=== PATIENT | male | born 1960 | race Caucasian/White ===

== ENCOUNTER 2017-04-04 08:54 | Inpatient (IN) | payer OTHER ==
--- NOTE | 2017-04-04 09:13 | EDPHY ---
H & P Stated Complaint: l hip replacement 3 months ago/increased pain/bruising /may be r/t humira Source: Patient Exam Limitations: No limitations - Personal History Current Tetanus/Diphtheria Vaccine: Unsure - Medical/Surgical History Hx Asthma: No Hx Chronic Respiratory Disease: No Hx Diabetes: No Hx Cardiac Disease: No Hx Renal Disease: No Hx Cirrhosis: No Hx Alcoholism: No Hx HIV/AIDS: No Hx Splenectomy or Spleen Trauma: No Other PMH: l hip replacement/psoriasis - Social History Smoking Status: Never smoked Time Seen by Provider: 04/04/17 09:11 HPI/ROS: HPI: This is a 57-year-old male presents with Chief Complaint: left hip replacement 3 months ago/increased pain/bruising /may be r/t humira Location:left hip Quality: Redness Duration: 4 days Signs and Symptoms: No bleeding, no radiation, no numbness, no weakness, no tingling, no incontinence, + decreased range of motion, + swelling, + pain Timing: Gradually worsening Severity: Moderate to severe Context: Patient has a history of psoriasis is on Humira last infusion Sunday status post left hip replacement by Dr. Sosa at [facility] 3 months ago presents with left hip redness, swelling, pain, warmth starting Sunday approximately 2 days after his Humira. Pain has been constant and gradually worsening to the point now that he is unable to bear weight on his left lower extremity. A similar occurrence approximately 2 months ago after his to Fabiana injection but symptoms only lasted for 5 days and self resolved. At that time he had x-ray imaging, dermatology skin scrapings, and lab work that were unremarkable per patient and . [facility] did not believe that the Humira injection was the etiology of the induration in the left hip. He has been having fevers as high as 101.2 oral F at home but the stop Sunday. and patient are concerned as the symptoms have persisted longer than the last episode. Modifying Factors: Tylenol, ibuprofen Comment: ROS: see HPI Constitutional: + fever, no chills, no weight loss Eyes: No blurred vision Respiratory: No shortness of breath, no cough Cardiovascular: No chest pain Gastrointestinal: No nausea, no vomiting no diarrhea Genitourinary: No dysuria Extremities: No myalgias Neurologic: No weakness, no numbness Skin: No rashes Hematologic: No bruising, no bleeding MEDICAL/SURGICAL/SOCIAL HISTORY: Medical history: Psoriasis Surgical history: Left hip replacement Social history: . CONSTITUTIONAL: Overweight adult white male, nontoxic in appearance, awake and alert, no obvious distress HEENT: Atraumatic and normocephalic, PERRL, EOMI. Tympanic membranes clear. Oropharynx clear, no exudate and moist pink mucosa. Airway patent. No lymphadenopathy. No meningismus. Cardiovascular: Normal S1/S2, regular rate, regular rhythm, without murmur rub or gallop. PULMONARY/CHEST: Symmetrical and nontender. Clear to auscultation bilaterally. Good air movement. No accessory muscle usage. ABDOMEN: Soft, nondistended, nontender, no rebound, no guarding, no peritoneal signs, no masses or organomegaly. No CVAT. EXTREMITIES: 2/2 pulses, LEFT HIP: Flexion to 100, extension to 90, hyperextension to 15, abduction to 25. Pain with internal rotation and external rotation. tenderness over greater trochanter. Well-healed posterior incision that is well approximated consistent with hip replacement. Erythema, warmth, induration noted over entire left hip extending into his gluteus leif. strength 5/5, no deformities, no clubbing, no cyanosis or edema. NEUROLOGICAL: no focal neuro deficits. GCS 15. SKIN: Warm and dry, no erythema. no rash. Good capillary refill. (Haleigh Rhodes) Constitutional: Initial Vital Signs Temperature (C) 36.4 C 04/04/17 09:00 Heart Rate 98 04/04/17 09:00 Respiratory Rate 20 04/04/17 09:00 Blood Pressure 134/88 H 04/04/17 09:00 O2 Sat (%) 95 04/04/17 09:00 O2 Delivery Mode Room Air Allergies/Adverse Reactions: adalimumab [From Humira] Allergy (Verified 04/04/17 08:59) Home Medications: Medication Instructions Recorded Oxycodone HCl 04/04/17 traMADol 04/04/17 Medical Decision Making - Diagnostics Imaging Results: Imaging Impressions Extremity CT 04/04/17 09:19 Impression: Left posterior 6 x 2.3 x 4.5 cm fluid collection, which extends to the posterior lateral femoral neck region, suspicious for abscess or less likely postsurgical hematoma. Left total hip arthroplasty appears in anatomical position. Consider CT-guided aspiration. Findings and recommendations discussed with Emergency Department physician, Haleigh Rhodes PA-C at 1130 hours on April 04, 2017. Final report concurs with initial preliminary interpretation. ED Course/Re-evaluation: The patient was evaluated and managed by the physician's pediatric dental assistant. My cosignature indicates that I reviewed the chart and I agree with the findings and plan of care as documented. I am the secondary supervising physician. ( Griselda Ford) Blood cultures, lactic acid, labs, IV fluids, IV medications, CT lower extremity ordered Given 2 L normal saline, 1 mg of Dilaudid Patient is afebrile and without systemic signs upon arrival. lactic acid 2.1; GIven IV Vancomycin Called by radiologist who advised her to posterior fluid collection in the per proximal femur that tracks into the femoral neck that is measuring 6 x 2.3 x 4.5 cm Spoke with patient and who wants me to contact [facility] in [place] and speak with Dr. Milton Jacobson to discuss case in situation and get recommendations versus admitting here to orthopedics and receiving care. 1230: Spoke with KIMBERLYN Jacobson's PA regarding the patient's labs, CT findings and care received thus far. She will speech her attending and call back regarding disposition. 1245: Called back from attending at [facility] who advised that patient could be managed here at this facility if he is willing. They will be available at any time for consultation and if hardware needs to be replaced patient can be transferred to them for revision and hardware removal. 1250: Spoke with Dr. Adam Cox who is agreeable to perform ultrasound guided aspiration of fluid collection ED decision to consult for admission, spoke with hospitalist and VISITOR SERVICE ASSISTANT Maegan who placed patient on [address] [place] under the care of Dr. Casanova. Spoke with Dr. Hitesh Keenan, orthopedics, who is happy to consult on patient. Of Note: Unfortunately due to delays in speaking with [place], patient received IV abx prior to US guided aspiration This patient was seen under the supervision of my secondary supervising physician. I evaluated care for this patient independently. Patient's presentation, labs/imaging, treatment and plan of care were discussed with secondary supervising physician. (Haleigh Rhodes) Differential Diagnosis: Differential diagnosis includes but is not limited to hardware infection, septic arthritis, cellulitis, hardware malfunction, allergic reaction, medication side effect. (Haleigh Rhodes) - Data Points Laboratory Results: Laboratory Results 04/04/17 09:20 04/04/17 09:20 04/04/17 04/04/17 04/04/17 09:31 09:20 09:20 WBC RBC Hgb Hct MCV MCH MCHC RDW Plt Count MPV Neut % (Auto) Lymph % (Auto) [place] % (Auto) Eos % (Auto) Baso % (Auto) Nucleat RBC Rel Count Absolute Neuts (auto) Absolute Lymphs (auto) Absolute Monos (auto) Absolute Eos (auto) Absolute Basos (auto) Absolute Nucleated RBC Immature Gran % Immature Gran # ESR VBG Lactic Acid 2.1 mmol/L mmol/L (0.7-2.1) Sodium 139 mEq/L mEq/L (134-144) Potassium 3.9 mEq/L mEq/L (3.5-5.2) Chloride 102 mEq/L mEq/L (97-110) Carbon Dioxide 22 mEq/l mEq/l (22-31) Anion Gap 15 mEq/L mEq/L (8-16) BUN 16 mg/dL mg/dL (7-23) Creatinine 0.8 mg/dL mg/dL (0.7-1.3) Estimated GFR > 60 Glucose 117 mg/dL H mg/dL (70-100) Calcium 9.5 mg/dL mg/dL (8.5-10.4) C-Reactive Protein Pending 04/04/17 09:20 WBC 9.07 10^3/uL 10^3/uL (3.80-9.50) RBC 4.82 10^6/uL 10^6/uL (4.40-6.38) Hgb 15.1 g/dL g/dL (13.7-17.5) Hct 44.1 % % (40.0-51.0) MCV 91.5 fL fL (81.5-99.8) MCH 31.3 pg pg (27.9-34.1) MCHC 34.2 g/dL g/dL (32.4-36.7) RDW 12.7 % % (11.5-15.2) Plt Count 249 10^3/uL 10^3/uL (150-400) MPV 9.8 fL fL (8.7-11.7) Neut % (Auto) 70.0 % % (39.3-74.2) Lymph % (Auto) 17.4 % % (15.0-45.0) [place] % (Auto) 9.5 % % (4.5-13.0) Eos % (Auto) 1.7 % % (0.6-7.6) Baso % (Auto) 0.6 % % (0.3-1.7) Nucleat RBC Rel Count 0.0 % % (0.0-0.2) Absolute Neuts (auto) 6.36 10^3/uL 10^3/uL (1.70-6.50) Absolute Lymphs (auto) 1.58 10^3/uL 10^3/uL (1.00-3.00) Absolute Monos (auto) 0.86 10^3/uL H 10^3/uL (0.30-0.80) Absolute Eos (auto) 0.15 10^3/uL 10^3/uL (0.03-0.40) Absolute Basos (auto) 0.05 10^3/uL 10^3/uL (0.02-0.10) Absolute Nucleated RBC 0.00 10^3/uL 10^3/uL (0-0.01) Immature Gran % 0.8 % % (0.0-1.1) Immature Gran # 0.07 10^3/uL 10^3/uL (0.00-0.10) ESR 52 MM/HR H MM/HR (0-20) VBG Lactic Acid Sodium Potassium Chloride Carbon Dioxide Anion Gap BUN Creatinine Estimated GFR Glucose Calcium C-Reactive Protein Medications Given: Discontinued Medications Hydromorphone HCl (Dilaudid) 1 mg IVP EDNOW ONE Stop: 04/04/17 09:21 Last Admin: 04/04/17 09:41 Dose: 1 mg Hydromorphone HCl (Dilaudid) 1 mg IVP EDNOW ONE Stop: 04/04/17 11:28 Last Admin: 04/04/17 11:33 Dose: 1 mg Sodium Chloride (Ns) 1,000 mls @ 0 mls/hr IV EDNOW ONE; Wide Open PRN Reason: Protocol Stop: 04/04/17 09:21 Last Admin: 04/04/17 09:42 Dose: 1,000 mls Sodium Chloride (Ns) 1,000 mls @ 0 mls/hr IV EDNOW ONE; Wide Open PRN Reason: Protocol Stop: 04/04/17 09:48 Last Admin: 04/04/17 11:32 Dose: 1,000 mls Vancomycin/Sodium Chloride (Vancomycin 1 Gm (Premix)) 250 mls @ 250 mls/hr IV EDNOW ONE PRN Reason: Protocol Stop: 04/04/17 12:37 Last Admin: 04/04/17 12:26 Dose: 250 mls Departure - Departure Disposition: [facility] Inpatient Acute Clinical Impression: Abscess of left hip History of hip replacement Qualifiers: Laterality: left Qualified Code(s): Z96.642 - Presence of left artificial hip joint
[2017-04-04] MEDS ORDERED: HYDROmorphONE/DILAUDID 1 MG/ML INJ IVP ONE ×3 (09:20→14:19)
[2017-04-04] MEDS ORDERED: NS 1,000 ML IV ONE ×2 (09:20→09:47)
[2017-04-04 09:34] LABS: % IMMATURE GRANULYOCYTES 0.8 % (0.0-1.1); ABSOLUTE IMMATURE GRANULOCYTES 0.07 10^3/uL (0.00-0.10); ADD DIFF? NO; ADD MORPH? NO; ADD SCAN? NO; ATYPICAL LYMPHOCYTE FLAG 20 (0-99); FRAGMENT RBC FLAG 0 (0-99); HEMATOCRIT 44.1 % (40.0-51.0); HEMOGLOBIN 15.1 g/dL (13.7-17.5); LEFT SHIFT FLG 0 (0-99); LIPEMIA HEMOLYSIS FLAG 90 (0-99); MEAN CELL HEMOGLOBIN 31.3 pg (27.9-34.1); MEAN CELL HEMOGLOBIN CONCENTR. 34.2 g/dL (32.4-36.7); MEAN CELL VOLUME 91.5 fL (81.5-99.8); MEAN PLATELET VOLUME 9.8 fL (8.7-11.7); PLATELET CLUMPS FLAG 0 (0-99); PLATELET COUNT 249 10^3/uL (150-400); RED BLOOD CELL COUNT 4.82 10^6/uL (4.40-6.38); RED CELL DISTRIBUTION WIDTH 12.7 % (11.5-15.2)
[2017-04-04] MEDS ORDERED: HYDROmorphONE/DILAUDID 1 MG/ML INJ ONE ×2 (09:45→14:13)
[2017-04-04 09:53] LABS: SEDIMENTATION RATE 52 MM/HR (0-20)
[2017-04-04 10:09] LABS: ANION GAP 15 mEq/L (8-16); CALCIUM 9.5 mg/dL (8.5-10.4); CARBON DIOXIDE 22 mEq/l (22-31); CHLORIDE 102 mEq/L (97-110); CREATININE 0.8 mg/dL (0.7-1.3); GLOMERULAR FILTRATION RATE > 60; GLUCOSE 117 mg/dL (70-100); POTASSIUM 3.9 mEq/L (3.5-5.2); SODIUM 139 mEq/L (134-144)
[2017-04-04] MEDS ORDERED: IOPAMIDOL (ISOVUE-300) 100 ML BTL ONE (10:11)
[2017-04-04] MEDS ORDERED: VANCOMYCIN HCL/NORMAL SALINE 250 ML IV ONE (11:38)
[2017-04-04] MEDS ORDERED: LIDOCAINE 1% 300 MG/30 ML SDV ONE (13:20)
[2017-04-04] MEDS ORDERED: ACETAMN/DIPHENHYDRAMINE 500/25MG TAB PO PRN (14:10)
[2017-04-04] MEDS ORDERED: ACETAMINOPHEN 325 MG TAB PO PRN (14:10)
[2017-04-04] MEDS ORDERED: HYDROmorphone HCL/NS/PF 0.4 MG/2 ML SYR IVP PRN (14:19)
[2017-04-04] MEDS ORDERED: ONDANSETRON DISINTEGRATING 4 MG TAB PO PRN (14:19)
[2017-04-04] MEDS ORDERED: ONDANSETRON 4 MG/2 ML VIAL IVP PRN (14:19)
[2017-04-04] MEDS ORDERED: NS 1,000 ML IV SCH (14:30)
[2017-04-04 15:57] LABS: WBC, SYNOVIAL FLUID 10322 /mm3 (0-150)
[2017-04-04] MEDS ORDERED: VANCOMYCIN 500 MG in D5W 100 ML IV ONE (16:30)
[2017-04-04] MEDS: ACETAMINOPHEN 325 MG TAB PO PRN (16:58)
[2017-04-04] MEDS: traMADol 50 MG TAB PO PRN (17:05)
--- NOTE | 2017-04-04 17:50 | PDGENHP ---
History and Physical History and Physical: CC: Left hip pain and fever HISTORY: This patient, who had a left total hip arthroplasty 3 months ago at [facility] , comes in now with fever and hip pain for the past 5 days. 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 His surgery was initially uncomplicated. He takes Humira for psoriasis. His 1st dose since surgery was 3 weeks ago and this was followed by approximately 5 days of skin discoloration and discomfort in the hip area although at all felt quite superficial. There was no pain with motion of the hip joint and no pain with standing or walking or other activities and there was no fever. He went back to his good recovery afterwards. He took his next dose of Humira last week and 5 days ago started having chills and sweats associated with fever, swelling and pain at the hip and redness of the skin. These symptoms have all worsened since that time so he is having quite a bit of difficulty walking. He presents to the hospital today with these symptoms. There has been no lightheadedness, shortness of breath, open skin wounds, nausea vomiting, diarrhea, abdominal pain, back pain. In the ER CT was done showing a fluid collection in the region of the hip prosthesis. He has since had 70 cc of fluid removed by ultrasound-guided needle aspiration and it was described as a yellowish fluid. 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 I have reviewed the list and ordered appropriate medicines. PHYSICAL EXAMINATION: Vital Signs: Temperature so far normal here Some tachycardia but blood pressures are good Examination: General: alert, oriented, good mentation, relaxed Skin: warm, dry, good color, no rash; good distal capillary refill HEENT: normal Neck: no mass or jvd Resps: relaxed Lungs: clear breath sounds Heart: regular, no murmur Abdomen: soft, nondistended, nontender, +BS, no mass Upper Extremities: normal Lower Extremities: At the left buttock and left posterior lateral hip area there is significant soft tissue swelling redness and tenderness without fluctuance (I am examining him after he had aspiration of 70 cc of fluid earlier today) No Bleeding or bruising Neurologic: normal speech/language, 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 Due to do his most likely infection I will ask Infectious Disease to see the patient. The ER has consulted consulted Dr. Younger from Orthopedics. I would presume that he will need a surgical washout or even or invasive procedures but a will await orthopedic consultation PLANS: -continue current vancomycin -will give some hydration and follow his vital signs closely, though he does not have evidence of sepsis at this time -infectious disease consultation -await orthopedics consultation as well -I have made him NPO at this time
[2017-04-04] MEDS: oxyCODONE IR 5 MG TAB PO PRN (20:32)
[2017-04-04] MEDS: ZOLPIDEM TARTRATE 5 MG TAB PO PRN (20:41)
[2017-04-05] MEDS ORDERED: VANCOMYCIN 1.5 GM in D5W 250 ML IV SCH (04:30)
[2017-04-05] MEDS: ACETAMINOPHEN 325 MG TAB PO PRN ×3 (04:39→17:28)
[2017-04-05] MEDS: oxyCODONE IR 5 MG TAB PO PRN ×3 (04:40→20:43)
[2017-04-05 05:24] LABS: % IMMATURE GRANULYOCYTES 0.8 % (0.0-1.1); ABSOLUTE IMMATURE GRANULOCYTES 0.06 10^3/uL (0.00-0.10); ADD DIFF? NO; ADD MORPH? NO; ADD SCAN? NO; ATYPICAL LYMPHOCYTE FLAG 10 (0-99); FRAGMENT RBC FLAG 0 (0-99); HEMATOCRIT 40.4 % (40.0-51.0); HEMOGLOBIN 13.6 g/dL (13.7-17.5); LEFT SHIFT FLG 0 (0-99); LIPEMIA HEMOLYSIS FLAG 80 (0-99); MEAN CELL HEMOGLOBIN 31.1 pg (27.9-34.1); MEAN CELL HEMOGLOBIN CONCENTR. 33.7 g/dL (32.4-36.7); MEAN CELL VOLUME 92.2 fL (81.5-99.8); MEAN PLATELET VOLUME 9.4 fL (8.7-11.7); PLATELET CLUMPS FLAG 0 (0-99); PLATELET COUNT 244 10^3/uL (150-400); RED BLOOD CELL COUNT 4.38 10^6/uL (4.40-6.38); RED CELL DISTRIBUTION WIDTH 12.6 % (11.5-15.2)
[2017-04-05 05:43] LABS: ANION GAP 14 mEq/L (8-16); CARBON DIOXIDE 23 mEq/l (22-31); CHLORIDE 102 mEq/L (97-110); CREATININE 0.8 mg/dL (0.7-1.3); GLOMERULAR FILTRATION RATE > 60; GLUCOSE 111 mg/dL (70-100); POTASSIUM 4.3 mEq/L (3.5-5.2); SODIUM 139 mEq/L (134-144)
--- NOTE | 2017-04-05 05:44 | GCON ---
[f rep st] CONSULTATION ORTHOPEDIC CONSULTATION DATE OF CONSULTATION: 04/04/2017 REASON FOR CONSULTATION: Left hip pain, swelling, redness, inability to weight bear status post tota l hip arthroplasty. HISTORY OF PRESENT ILLNESS: This is a 57-year-old male who had a left posterior approach total hip a rthroplasty by Dr. Cleveland at the [facility] in [place], [place] approximately 3 months ago. He h ad a relatively uneventful postoperative course without wound complications until 1 month ago. 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 His Hu terry injection 1 month ago, he developed erythema, redness, swelling, and fevers in the posterior asp ect of his hip and buttock. However, symptoms were more mild. He was evaluated by the [place] team, an d this was thought to be non infectious. He was evaluated also by Dermatology. However, this resolv ed on its own after approximately 5 days. He received a subsequent Humira injection on Sunday of last week, March 28. On Sunday, he developed redness, swelling, pain about the left hip as well a s fevers. He has not had fevers in several days but has extreme pain with any sort of attempts to we ightbearing and motion. He was administered one dose of vancomycin IV in the emergency department pr ior to aspiration of his left hip. Blood work was also drawn, as well as a CT scan was performed. REVIEW OF SYSTEMS: A comprehensive 10-system review revealed no other significant findings. PAST MEDICAL HISTORY: Includes psoriasis for which he has been on disease-modifying drugs for the 5 years. PAST SURGICAL HISTORY: Includes knee arthroscopy, cholecystectomy, and the recent left posterior abrahan vick total hip arthroplasty for avascular necrosis. ALLERGIES: None. MEDICATIONS: Include Humira as well as recent postoperative medications including pain relievers and Ambien. SOCIAL HISTORY: The patient denies smoking or drug use, does consume approximately 3 glasses of wine per evening. PHYSICAL EXAMINATION: GENERAL: The patient is awake, alert, and oriented x3. HEENT: NC/AT. LUNGS : Respirations easy and nonlabored. ABDOMEN: Soft, nondistended, nontender. LEFT LOWER EXTREMITY: The left buttock and posterolateral hip with significant swelling, erythema, and exquisite tenderne ss to even light touch. He has significant pain with even attempts at range of motion. Patient's hi p is positioned in a flexed and externally rotated position and appears to be comfortable in this pos ition if he is not moving. He has no calf pain or swelling. Sensation is intact to light touch from L3 to S1. He has intact EHL, FHL, TA, and GSC. Palpable DP, PT pulses. LABORATORY DATA: CBC and BMP are unremarkable. ESR is 52 and elevated. CRP is [address] and elevated. IMAGING: CT scan reveals a large posterior fluid collection extending to the posterolateral femoral neck of the prosthesis. Prosthesis itself does not appear to have loosening or fracture and remains in anatomic position. Aspiration results reveal 70 cc of yellow and cloudy fluid aspirated from the posterior aspect of the hip with 10,322 white blood cells, 99% neutrophils. In addition, the prelimi nary gram-stain reveals 2+ gram-positive cocci. ASSESSMENT AND PLAN: A 57-year-old male with a left periprosthetic total joint infection. Plan and information were discussed with the patient and his . I recommend revision surgery with head and liner exchanged and copious irrigation and debridement of the left hip based on history, physical ex am, laboratory data, CT scan, and aspiration results. There is a possibility that his infection has been subclinical for the last month and this has been present since his first Humira injection since his total hip. This would put him at an increased risk for failure with the 1-stage revision, in whi ch case, a 2-stage revision with complete explantation of the prosthesis with implantation of an anti biotic spacer and IV antibiotics through a PICC line for at least 6 weeks targeted at a specific orga nism, followed by reimplantation of the total hip prosthesis once the infection was documented to be completely cleared. The patient and his are debating regarding location of treatment, as his in itial procedure was performed in [place], [place] at the [facility]. Patient has refused surger y this evening. He and his will have a discussion whether or not to stay in [place] or fly back to the [facility] for surgery. He will be n.p.o. after midnight. He is currently still on IV vanc omycin. We will discuss treatment with him again tomorrow. /[id number]/MODL
[2017-04-05] MEDS ORDERED: ENOXAPARIN 40 MG/0.4 ML SYR SC SCH (09:00)
--- NOTE | 2017-04-05 09:14 | SOAPPROG ---
SOAP Progress Note Assessment/Plan: Assessment: The patient interviewed and examined today. Please see my dictated consultation for the details. Plan: 04/05/17 09:14 Objective: Vital Signs Temp Pulse Resp BP Pulse Ox 36.6 C 80 18 139/98 H 91 L 04/05/17 08:25 04/05/17 08:25 04/05/17 08:25 04/05/17 08:25 04/05/17 08:25 Microbiology 04/04/17 14:40 Gram Stain - Final Hip - Aspirate Laboratory Results 04/05/17 04:45 04/05/17 04:45 04/04/17 04/05/17 04/06/17 05:59 05:59 05:59 Intake Total 450 Output Total 1750 Balance -1300 ICD10 Worksheet Patient Problems: Problems Problem Status Onset Abscess of left hip Acute History of hip replacement Acute
--- NOTE | 2017-04-05 09:45 | GHP ---
[f rep st] PREOP HISTORY AND PHYSICAL DATE OF ADMISSION: 04/04/2017 PROBLEMS: 1. Possible left total hip arthroplasty deep sepsis The patient is a 57-year-old man who underwent a left total hip arthroplasty at the [facility] on January 01, 2017. His original diagnosis was avascular necrosis. There were no significant postoperative problems. Several weeks postop he had a small superficial infection at the very distal end of the incision. This was treated with oral antibiotics and resolved completely. He had a normal recovery after that. The patient has a history of psoriatic arthritis. He has been receiving Humira injections for about a year and a half. His first Humira injection after the surgery was in February. He developed a rash on the lateral side of his hip with some local pain in the posterolateral hip region. He was checked again at the [facility] and nothing significant was discovered. Within 5 days, his symptoms completely resolved without any treatment. The erythema resolved and the pain resolved. He started walking normally again. Last Sunday he had another Humira injection. By Sunday he developed a large area of erythema and developed a fever. On April 04 he came to the emergency room because of severe pain in the left hip and an inability to walk. His white count in the emergency room was 9070. Neutrophil percentage was 70% . His sed rate was 52, and his C-reactive protein was 156. Repeat CBC today showed a white count of 7240 with 67% neutrophils. He received a dose of IV vancomycin in the emergency room yesterday morning. He received a 2nd dose of IV vancomycin last night. Yesterday afternoon he had an ultrasound-guided aspiration of his left hip joint. The needle was introduced through the posterior aspect of the buttocks, and they aspirated 60 mL of a yellow fluid. His gram-stain from the fluid showed 4+ PMNs and 2+ gram- positive cocci. PHYSICAL EXAMINATION: Exam today shows he is fully alert and oriented. He is quite comfortable. He has a small area of erythema on the buttocks. He can flex the hip to about 80 degrees before he gets much pain. He has active hip flexion. He is primarily tender along the incision. He has not had plain films. IMPRESSION: 1. Status post left total hip arthroplasty. 2. History of psoriatic arthritis. 3. Probable sepsis of the left hip. The history of erythema and pain following his Humira injections is puzzling. I have talked to the patient and his extensively about the diagnosis and various treatments. They have some inclination for returning to the [facility] for treatment. His original surgery was done by Dr. Deandre Jacobson. His has been in close communication with the [facility] in the last couple of days regarding his treatment. One option is surgical washout and debridement of the wound with a liner head exchange. The patient would prefer to wait a day or two to see what develops. He also is inclined to stop the antibiotics and see if he continues to improve or if the symptoms recur. The hip fluid culture might be inconclusive because he received IV vancomycin prior to the aspiration. The presence of 2+ gram-positive cocci in the fluid is worrisome. I will contact the [facility] for additional information and discussed the case with Dr. Byrant Casanova. If he needs a surgical debridement and headliner exchange, we can do that here in [place] in the next day or two. /[id number]/MODL MTDD
--- NOTE | 2017-04-05 11:24 | PDMN ---
Medical Necessity Medical necessity: Pt meets INPT criteria per and [facility] Musculoskeletal Disease GRG (est. 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
--- NOTE | 2017-04-05 12:24 | ASMTCMCOM ---
CM Note CM Note Notes: Pt has L hip abscess (had total hip in December at [facility] in [place]). Ortho and ID consulting, PT/OT evals pending. Pt may need debridement and may consider having this done in [place]. CM to follow. Date Signed: 04/05/2017 12:24 PM Electronically Signed By:BILLY Roman
[2017-04-05] MEDS ORDERED: IOPAMIDOL (ISOVUE 370) 100 ML BTL IV ONE (14:14)
[2017-04-05] MEDS ORDERED: LIDOCAINE 1% 300 MG/30 ML SDV ONE (14:14)
--- NOTE | 2017-04-05 16:10 | HOSPPROG ---
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 I reviewed the case in detail today with doctors Keaton Townsend and Mable Manzo. The patient is feeling notably better after aspiration of 60 cc fluid and day of antibiotics. He is afebrile with no signs of sepsis. However there is clearly infection in the fluid as obtained. Today CT with arthrocentesis definitely seems to point to a prosthetic joint infection and so further discussion between Infectious Disease Orthopedics and the patient and family will occur to make recommendations but it sounds like probably a joint revision will be required As his infection is with a group a strep we should be able to treat him with Ancef. SUBJECTIVE: Feels much better today with less pain and better mobility after the removal of 60 cc of fluid from his hip last evening and antibiotics no chills or sweats today Eating well OBJECTIVE Vitals reviewed: Afebrile with stable vital signs Exam: alert oriented skin warm dry color ok resps not labored lungs clear BSs heart regular abd soft nondistended nontender, bowel sounds present limbs less swelling and tenderness at the left hip but still not nearly at baseline iv site ok Laboratory data: Synovial fluid from yesterday's CT-guided aspiration with 10,000 white cells and growing a group a strep CBC and chemistry stable CT scan done today with arthrogram does show communication between the synovial space at the prosthesis and the posterior fluid collection which was aspirated last evening, indicating prosthetic joint infection Objective: Vital Signs Temp Pulse Resp BP Pulse Ox 36.8 C 96 18 120/94 H 92 04/05/17 15:59 04/05/17 15:59 04/05/17 15:59 04/05/17 15:59 04/05/17 15:59 Microbiology 04/04/17 14:40 Gram Stain - Final Hip - Aspirate Laboratory Results 04/05/17 04:45 04/05/17 04:45 04/04/17 04/05/17 04/06/17 06:59 06:59 06:59 Intake Total 450 Output Total 1750 Balance -1300 - Time Spent With Patient Time Spent with Patient: greater than 35 minutes Time Spent with Patient: Greater than 35 minutes spent on this patients care, greater than 50% of time spent counseling, educating, and coordinating care regarding the above mentioned plan. ICD10 Worksheet Patient Problems: Problems Problem Status Onset Abscess of left hip Acute History of hip replacement Acute
[2017-04-05] MEDS: ceFAZolin 2 GM/DEXTROSE 100 ML IV SCH (17:28)
[2017-04-05] MEDS: ZOLPIDEM TARTRATE 5 MG TAB PO PRN (20:42)
--- NOTE | 2017-04-05 20:42 | GCON ---
[f rep st] CONSULTATION INFECTIOUS DISEASE CONSULTATION. DATE OF CONSULTATION: 04/05/2017 PHYSICIAN REQUESTING CONSULT: Bryant Casanova. REASON FOR CONSULTATION: Possible left septic hip arthroplasty. 57-year-old male with a history of psoriatic arthritis and psoriasis on chronic Humira, who underwent a left total hip arthroplasty at the [facility] on January 01, 2017. Initial diagnosis prior to the procedure was avascular necrosis. Patient had an uneventful postoperative period and was progressing well with rehab and was ambulating with a cane. His first problem occurred in February 2017 when he received his Humira injection. He developed some discoloration of his left hip and presented to [place] for evaluation where he underwent evaluation and it was felt that there was no specific diagnosis to have and patient's symptoms improved. Again, patient administered Humira on 03/28/2017, and subsequently patient developed increased swelling, redness on his left buttock and back and became increasingly painful to ambulate. Over the last couple days, he was unable to walk. Patient subsequently presented to the emergency room 04/04/2017, where he was found to have some tenderness and induration associated with that hip. Patient underwent an extremity CT which showed a 6 x 2.3 x 4.5 cm fluid collection which extends to the posterolateral femoral neck. Subsequently, patient underwent ultrasound-guided aspiration of this area, which 60 mL of yellow fluid was removed. Gram stain of this fluid showed GPCs and subsequently culture showed strep dysgalactiae group C/G. Patient received 1 dose of IV vancomycin in the ER prior to this aspiration and antibiotics have been held since that time. Today, patient underwent a left hip arthrogram with only 1 mL of clear fluid aspirated. Additional iodine was placed and contrast was placed intra-articular and subsequent CT scan was performed which demonstrated communication between the abscess cavity and the joint. In addition to severe pain and swelling of the left hip, patient had associated fevers. PAST MEDICAL HISTORY: Psoriatic arthritis on biologic for 5 years, on topical therapy prior to that. 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 FAMILY HISTORY: No family history of autoimmune or immune deficiencies. SOCIAL HISTORY: Patient works in [employer]. No tobacco. No street drugs. Patient is . MEDICATIONS: Vancomycin x1, Tylenol, Lovenox 40 subcu, hydromorphone as needed , Zofran, oxycodone, normal saline, Ultram and Ambien. ALLERGIES: Adalimumab. REVIEW OF SYSTEMS: A complete 10-point review of systems was performed and is negative except as mentioned in the HPI. PHYSICAL EXAM: VITAL SIGNS: Blood pressure 120/94, heart rate is 96, respiratory rate 18, saturation 92% on room air, T 36.8. GENERAL: This is a man who is generally comfortable. No acute distress. HEENT: Within normal limits. No conjunctival hemorrhages. Good dentition. Moist mucous membranes. NECK: Supple. No lymphadenopathy. CARDIOVASCULAR: Regular rate, no murmurs. CHEST: Clear to auscultation bilaterally. EXTREMITIES: His left hip was indurated and warm. No melinda cellulitis was noted, although exam was limited due to superimposed orange Hibiclens. Significant tenderness to palpation of the left hip. Dorsalis pedis pulses were good. Patient had significant limited range of motion of the hip due to pain. NEUROLOGICALLY: He was alert and oriented x4 without obvious focal neurologic deficits. SKIN: No rashes. LABORATORY: White count 7.2, hematocrit 40, platelets 244, 67% neutrophils, 20 % lymphocytes. ESR 52, CRP 152, creatinine 0.8. Fluid from abscess showed 10, 000 WBCs, 99% neutrophils, and 968 RBCs. Blood cultures from 04/04/2017 are no growth to date and hip/abscess aspirate showed strep dysgalactiae. ASSESSMENT AND PLAN: 57-year-old male with psoriasis on a TNF inhibitor, who presents with increased left hip pain and fever 3 months out from left total hip arthroplasty, now demonstrated to have left septic prosthetic hip arthritis with associated abscess with culture showing strep dysgalactiae. Abscess cavity found to be connected to joint (info defined later in the day from my initial visit) which reflects septic joint and would lean towards two-step procedure with removal and washout of joint, followed by 6 weeks of IV antibiotics and subsequently replacement following demonstration of sterility of the joint. Joint retention associated with decreased success of cure of septic prosthetic joint. Will resume IV antibiotics with cefazolin 2 g IV q.8. Will likely change to ceftriaxone 2gm IV daily for ease of administration as outpatient. Reviewed side effects of antibiotics with patient and as well as PICC line placement. Time 75 min >50% time spent with education and counseling regarding antibiotic side effects including risks of cdiff, risks of PICC line and likely need for additional surgical intervention. Questions were answered and will continue to follow on a daily basis. /[id number]/MODL MTDD
[2017-04-06] MEDS: ACETAMINOPHEN 325 MG TAB PO PRN ×2 (00:43→06:28)
[2017-04-06] MEDS: ceFAZolin 2 GM/DEXTROSE 100 ML IV SCH ×3 (00:45→18:17)
[2017-04-06] MEDS: traMADol 50 MG TAB PO PRN ×2 (09:51→19:41)
[2017-04-06] MEDS ORDERED: ceFAZolin 1 GM/5 ML SYR ONE ×2 (11:50→12:20)
[2017-04-06] MEDS ORDERED: MIDAZOLAM 2 MG/2 ML VIAL IVP ONE (12:45)
--- NOTE | 2017-04-06 12:46 | PDANEPAE ---
ANE History of Present Illness here for I and D hip ANE Past Medical History - Cardiovascular History Hx Hypertension: No Hx Arrhythmias: No Hx Chest Pain: No Hx Coronary Artery / Peripheral Vascular Disease: No Hx CHF / Valvular Disease: No Hx Palpitations: No - Pulmonary History Hx COPD: No Hx Asthma/Reactive Airway Disease: No Hx Recent Upper Respiratory Infection: No Hx Oxygen in Use at Home: No Hx Sleep Apnea: Yes Sleep Apnea Screening Result - Last Documented: Positive - Endocrine History Hx Diabetes: No Hypothyroid: No Hyperthyroid: No - Renal History Hx Renal Disorders: No - Liver History Hx Hepatic Disorders: No - Neurological & Psychiatric Hx Hx Neurological and Psychiatric Disorders: No - Chronic Pain History Chronic Pain: No ANE Review of Systems Review of systems is: negative Review of Systems: - Exercise capacity Exercise capacity: >=4 METS ANE Patient History - Allergies Allergies/Adverse Reactions: adalimumab [From Humira] Allergy (Verified 04/04/17 08:59) - Home Medications Home medications: home medication list seen and reviewed Home Medications: Acetaminophen [Tylenol 325mg (*)] 325 mg PO Q8HRS PRN 04/04/17 [Last Taken 04/03] Acetamn/Diphenhydramine 500/25 [Tylenol PM (*)] 1 each PO HS PRN 04/04/17 [Last Taken 04/03/17] Adalimumab [Humira] 40 mg SQ WE 04/04/17 [Last Taken 03/28/17] oxyCODONE IR [Oxycodone Ir (*)] 5 - 10 mg PO Q8HRS PRN 04/04/17 [Last Taken 1 tab] traMADol [Ultram 50 mg (*)] 50 - 100 mg PO Q6HRS PRN 04/04/17 [Last Taken ] - NPO status NPO Status: no food or drink >8 hours NPO Since - Liquids (Date): 04/06/17 NPO Since - Liquids (Time): 09:00 NPO Since - Solids (Date): 04/05/17 NPO Since - Solids (Time): 19:00 - Anes Hx Anes Hx: no prior problems - Smoking Hx Smoking Status: Never smoked ANE Labs/Vital Signs - Labs Result Diagrams: 04/05/17 04:45 04/05/17 04:45 - Vital Signs Blood Pressure: 140/96 Heart Rate: 90 Respiratory Rate: 18 O2 Sat (%): 91 Height: 185.42 cm Weight: 111.13 kg ANE Physical Exam - Airway Neck exam: FROM Mallampati Score: Class 1 - Pulmonary Pulmonary: no respiratory distress - Cardiovascular Cardiovascular: regular rate and rhythym - ASA Status ASA Status: II ANE Anesthesia Plan Anesthesia Plan: general endotracheal anesthesia
[2017-04-06] MEDS ORDERED: ROPIVACAINE 0.2% 80 MG, EPINEPHrine 0.2 MG, KETOROLAC TROMETHAMINE 30 MG in BAG 0 ML IU ONE (13:06)
[2017-04-06] MEDS ORDERED: fentaNYL 100 MCG/2 ML INJ ONE ×4 (13:09→16:40)
[2017-04-06] MEDS ORDERED: PROPOFOL/EMULSION 500 MG/50 ML BOTTLE IV ONE (13:21)
[2017-04-06] MEDS ORDERED: HYDROmorphONE/DILAUDID 2 MG/ML INJ ONE (13:59)
[2017-04-06] MEDS ORDERED: PROMETHAZINE HCL 25 MG/ML INJ IVP PRN (14:12)
[2017-04-06] MEDS ORDERED: NALOXONE HCL 0.4 MG/ML INJ IVP PRN (14:12)
[2017-04-06] MEDS ORDERED: ALBUTEROL 3 ML DEYVIAL IH PRN (14:12)
[2017-04-06] MEDS ORDERED: ONDANSETRON 4 MG/2 ML VIAL IVP PRN (14:12)
[2017-04-06] MEDS ORDERED: POVIDONE-IODINE 20 ML in SODIUM CL IRRIG SOLUTION 500 ML IRR ONE (14:30)
[2017-04-06] MEDS ORDERED: SUGAMMADEX SODIUM 200 MG/2 ML VIAL IVP ONE (14:56)
[2017-04-06] MEDS ORDERED: CYCLOBENZAPRINE 10 MG TAB PO PRN (15:17)
[2017-04-06] MEDS ORDERED: MAGNESIUM HYDROXIDE 30 ML UDCUP PO PRN (15:17)
[2017-04-06] MEDS ORDERED: LACTULOSE 20 GM/30 ML UDCUP PO PRN (15:17)
[2017-04-06] MEDS ORDERED: POLYETHYLENE GLYCOL 3350 17 GM PKT PO PRN (15:17)
[2017-04-06] MEDS ORDERED: BISACODYL 10 MG SUPP PR PRN (15:17)
[2017-04-06] MEDS ORDERED: DIPHENOXYLATE/ATROPINE LOMOTIL 1 TAB PO PRN (15:17)
--- NOTE | 2017-04-06 15:18 | POSTOPPROG ---
Post Op Note Date of Operation: 04/06/17 Surgeon: Davy Townsend [employer] Instrument Mechanic: Héctor Marrero/Lorne Piña Anesthesiologist: Dr. Jaime Mon Anesthesia: GET(General Endotracheal) Post-op Diagnosis: Infected left total hip arthroplasty Procedure: Left total hip debridement and irrigation with head/liner exchange. Inf/Abcess present in the surg proc area at time of surgery?: No EBL: 100-500 Drains: Baron Joseph
--- NOTE | 2017-04-06 15:28 | POSTANESTH ---
Post Anesthetic Evaluation Cardiovascular Status: Normal, Stable Respiratory Status: Normal, Stable Level of Consciousness/Mental Status: Mildly Sleepy, Arousable Pain Control: Adequate, Prn Tx Ordered Nausea/Vomiting Control: Adequate, Prn Tx Ordered Complications Possibly Related to Anesthesia: None Noted
[2017-04-06] MEDS: fentaNYL 100 MCG/2 ML INJ IVP PRN ×4 (15:43→17:02)
[2017-04-06] MEDS ORDERED: HYDROmorphONE/DILAUDID 1 MG/ML INJ ONE (16:01)
--- NOTE | 2017-04-06 16:02 | HOSPPROG ---
Hospitalist Progress Note Assessment/Plan: DIAGNOSES: -septic left hip prosthesis, status post imaging guided aspiration 60 cc infected synovial fluid, status post Left total hip debridement and irrigation with head/liner exchange. 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 I reviewed his case in detail with Dr. Banuelos. Remaining questions will be whether there will be plans or need for further surgery including potential revision, what would be the most appropriate suppressive antibiotic and duration , and whether it should be considered safe or not for him to continue using Humira therapy. Dr. Banuelos has asked the laboratory to test his strep isolate for penicillin resistance. Will discuss further with Dr. Banuelos and Dr. Townsend as the patient recovers. At this time he will require ongoing IV antibiotics, physical therapy occupational therapy, DVT prophylaxis, wound management, and discharge planning to assess his needs and mobility issues for discharge. SUBJECTIVE: Feels much better today with less pain and better mobility after the removal of 60 cc of fluid from his hip last evening and antibiotics no chills or sweats today Eating well OBJECTIVE Vitals reviewed: Afebrile with stable vital signs Exam: alert oriented skin warm dry color ok resps not labored lungs clear BSs heart regular abd soft nondistended nontender, bowel sounds present limbs less swelling and tenderness at the left hip but still not nearly at baseline iv site ok Laboratory data: Synovial fluid from CT-guided aspiration with 10,000 white cells and growing a group C/G strep CBC and chemistry stable Objective: Vital Signs Temp Pulse Resp BP Pulse Ox 37.2 C 90 18 140/96 H 91 L 04/06/17 13:08 04/06/17 13:08 04/06/17 13:08 04/06/17 13:08 04/06/17 13:08 Microbiology 04/04/17 14:40 Gram Stain - Final Hip - Aspirate 04/05/17 15:10 Gram Stain - Final Synovial Fluid - Aspirate Laboratory Results 04/05/17 04:45 04/05/17 04:45 04/05/17 04/06/17 04/07/17 06:59 06:59 06:59 Intake Total 450 600 Output Total 1750 300 Balance -1300 300 - Time Spent With Patient Time Spent with Patient: greater than 35 minutes Time Spent with Patient: Greater than 35 minutes spent on this patients care, greater than 50% of time spent counseling, educating, and coordinating care regarding the above mentioned plan. ICD10 Worksheet Patient Problems: Problems Problem Status Onset Abscess of left hip Acute History of hip replacement Acute
[2017-04-06] MEDS: HYDROmorphONE/DILAUDID 1 MG/ML INJ IVP PRN ×6 (16:04→17:09)
--- NOTE | 2017-04-06 16:49 | ASMTCMCOM ---
CM Note CM Note Notes: Pt went to surgery today for hip abscess, will require home IV antibiotics. Pt currently on cefazolin 2g q8. Referral sent to Evelyn Rojas attempted to meet pt but he was in surgery. Pt still needs picc. Pt may need C PT/OT. CM to follow Date Signed: 04/06/2017 04:48 PM Electronically Signed By:BILLY Roman
--- NOTE | 2017-04-06 17:51 | PCMIDPN ---
Assessment/Plan: Assessment/Plan: * Left total hip arthroplasty septic arthritis status post incision and drainage with liner exchange: Initial cultures with growth of group C/G Streptococcus. Repeat cultures are currently pending. Continue cefazolin pending additional cultures. Have asked laboratory to assess penicillin susceptibility of isolate. Likely will transition to ceftriaxone unless dictated otherwise by additional culture findings. 04/06/17 17:48 Subjective: Patient status post left hip incision and drainage with head/liner exchange. Objective: Vital Signs Temp Pulse Resp BP Pulse Ox 36.6 C 90 13 131/77 H 93 04/06/17 17:17 04/06/17 13:08 04/06/17 17:30 04/06/17 17:30 04/06/17 17:30 Microbiology 04/04/17 14:40 Gram Stain - Final Hip - Aspirate 04/05/17 15:10 Gram Stain - Final Synovial Fluid - Aspirate Laboratory Results 04/05/17 04:45 04/05/17 04:45 04/05/17 04/06/17 04/07/17 05:59 05:59 05:59 Intake Total 433 270 1771 Output Total 1750 300 440 Balance -2076 097 5732 ESR 52 MM/HR (0-20) H 04/04/17 09:20 C-Reactive Protein 156.2 mg/L (<10.0) H 04/04/17 09:31 Cefazolin # 1 Hip cultures with growth of group C/G Streptococcus Synovial cultures pending Blood cultures no growth - Physical Exam General Appearance: alert, no apparent distress EENT: pharynx normal, No scleral icterus, No conjunctival petechiae Respiratory: lungs clear, No respiratory distress Cardiac/Chest: regular rate, rhythm, No systolic murmur Extremities: other (Hip dressed postoperatively; serosanguineous output in CAITLIN bulb) Abdomen: non-tender, No distended ICD10 Worksheet Patient Problems: Problems Problem Status Onset Abscess of left hip Acute History of hip replacement Acute
[2017-04-06] MEDS: oxyCODONE IR 5 MG TAB PO PRN (18:28)
[2017-04-06] MEDS: FAMOTIDINE 20 MG TAB PO SCH (19:40)
[2017-04-06] MEDS: SENNOSIDES/DOCUSATE SODIUM TAB PO SCH (19:40)
[2017-04-06] MEDS: ZOLPIDEM TARTRATE 5 MG TAB PO PRN (19:41)
--- NOTE | 2017-04-06 22:57 | GOP ---
[f rep st] OPERATIVE REPORT DATE OF OPERATION: 04/06/2017 SURGEON: Davy Townsend MD LOGISTICS ENGINEER: Héctor Marrero and Lorne Piña. ANESTHESIA: General. ANESTHESIOLOGIST: Dr. Jaime Mon. PREOPERATIVE DIAGNOSIS: Septic left total hip arthroplasty. POSTOPERATIVE DIAGNOSIS: Septic left total hip arthroplasty. PROCEDURE PERFORMED: Left total hip arthroplasty debridement and irrigation, with head/liner exchang e. FINDINGS: DESCRIPTION OF PROCEDURE: The patient is already receiving intravenous Ancef on a regular basis. No additional preoperative antibiotics were given. Tranexamic acid was not used. He was placed on the operating room table in the supine position and given general anesthesia by Dr. Jaime Mon. A Fol ey catheter was not used. He wore a stocking and SCD on the nonoperative leg. He was rolled to the right lateral decubitus position. The position was secured with the pegboard table attachment. An a xillary roll was used, and all pressure points were carefully padded. I was careful to lock his pelv is in a vertical position. His perineum was isolated with plastic adhesive drapes. His left hip and left lower extremity were prepped with ChloraPrep. They were draped free using sterile sheets, stoc kinette, and Ioban plastic drapes. The [employer] time-out was performed to verify the correct surgical side and the [facility] patient identity. The [place] time-out was also performed. I reopened his original surgical incision on the posterior lateral surface of his hip. This was appr oximately 7-8 inches in length. The subcutaneous tissues were sharply divided, and hemostasis was ob tained using electrocautery. There were no abnormalities or evidence of infection in the subcutaneou s tissues. The fascia ted was identified and split along the axis of its fibers. I curved posterio rly and proximally, and split the fascia of the gluteus leif. I encountered an abnormal amount of serous to slightly turbid fluid posterior to the hip joint. On his preoperative CT scan 48 hours ago, there was some type of fluid collection within the gluteus leif muscle. I did some finger dissection through the fibers of the gluteus leif, but could no t find an additional abscess. I suspect that what was seen was the fluid that was sitting posterior to the femoral neck area and adjacent to the trochanter. A culture for aerobic and anaerobic organis ms was taken from the fluid in the subfascial space. There was no remaining posterior capsule or ext ernal rotators. There was a large open communication into the posterior aspect of the hip joint. Th ere was some mild yellowish huang fibrinoid material covering some of the soft tissues. This was remov ed with a rongeur. The hip was dislocated posteriorly. I used a bone tamp to tap off the ceramic head. I then dissecte d some soft tissues around the rim of the acetabular component to gain access. I took a biopsy of in flamed synovial tissue and sent that for aerobic and anaerobic culture. I used a 3.2 drill bit and diane blacnas inserted a 4.5 cancellous screw through the polyethylene and used that to disengage the polyethyl amanda liner from the acetabular shell. This was a multi-holed shell. There was some yellowish huang fib rinoid material in the screw holes that were unused. I used a curette to curette out this material. I did some additional debriding of soft tissues with sharp dissection and with a rongeur. Everythin g was thoroughly irrigated with a dilute Betadine solution. I reinserted a [employer] [place] polyethylene liner, which was a neutral liner with a 36 mm inside diamet er and a 58 mm outside diameter. I then did a trial reduction with a -2.5 and a -5 mm, 36 mm head co mponent. I had removed a [place] [employer] Delta ceramic head with an outside diameter of 36 mm and a n cassius length of -5. The hip was very stable with the trial reduction with a -5, 36 mm head. I reinser abhijit a 36 mm cobalt chrome head. I did not want to use another ceramic head, because it would have re quired a titanium sleeve, which would create another interface. The 36 mm [place] chrome head from eduarda with a -5 mm neck length was tapped securely onto the clean trunnion. The trunnion itself look ed healthy. The hip was thoroughly irrigated 1 final time with a dilute Betadine solution. It was reduced. It w as very stable in flexion and internal rotation up to 60 degrees. There was no posterior capsule for repair. I inserted a 5 mm PVC drain along the neck of the prosthe sis and brought it out anteriorly and distally. The fascia ted was closed first with some interrupt ed #1 PDS sutures, followed by a running #2 PDO suture. Subcutaneous tissues were infiltrated with the joint cocktail, 40 cc. Subcutaneous tissues were closed with a running 0 barbed Ethicon Stratafix Monoderm suture. The skin was closed with a running 3-0 barbed Ethicon Stratafix Monoderm subcuticular suture. The skin edges were reapproximated and sealed with Dermabond glue. The wound was covered with a strip of Telfa, an d everything was held in place with a piece of clear plastic Tegaderm. A long-leg ABHIJIT stocking and SCD were applied to his left lower extremity. He wore a stocking and SCD on the opposite leg during the procedure. An abduction pillow was placed between his knees. He was awakened from anesthesia and rolled to the supine position on his [facility] He was taken to PACU in satisfactory condition. There were no recognized intraoperative complications. The estimated blood loss was about 400 mL. Héctor Marrero and Lorne Piña acted as surgical assistants. Their assistance was a medical necess ity for safe completion of the procedure. Copy requested to: Dr. Deandre Jacobson [facility] /[id number]/MODL
[2017-04-07] MEDS: ceFAZolin 2 GM/DEXTROSE 100 ML IV SCH ×2 (00:12→08:16)
[2017-04-07] MEDS: ACETAMINOPHEN 325 MG TAB PO PRN ×3 (00:19→18:02)
[2017-04-07] MEDS: traMADol 50 MG TAB PO PRN ×4 (03:02→20:17)
[2017-04-07] MEDS: oxyCODONE IR 5 MG TAB PO PRN (03:04)
[2017-04-07 04:58] LABS: HEMATOCRIT 35.7 % (40.0-51.0); HEMOGLOBIN 11.9 g/dL (13.7-17.5)
[2017-04-07 05:20] LABS: ANION GAP 12 mEq/L (8-16); CALCIUM 8.9 mg/dL (8.5-10.4); CARBON DIOXIDE 25 mEq/l (22-31); CHLORIDE 102 mEq/L (97-110); CREATININE 0.8 mg/dL (0.7-1.3); GLOMERULAR FILTRATION RATE > 60; GLUCOSE 102 mg/dL (70-100); POTASSIUM 4.5 mEq/L (3.5-5.2); SODIUM 139 mEq/L (134-144)
[2017-04-07] MEDS: ENOXAPARIN 40 MG/0.4 ML SYR SC SCH (08:08)
[2017-04-07] MEDS: FAMOTIDINE 20 MG TAB PO SCH ×2 (08:09→20:16)
[2017-04-07] MEDS: SENNOSIDES/DOCUSATE SODIUM TAB PO SCH ×2 (08:09→20:15)
--- NOTE | 2017-04-07 10:32 | SOAPPROG ---
SOAP Progress Note Assessment/Plan: Assessment: Postop day 1 status post left total hip and incision and debridement prosthetic head and liner exchange. Plan: Weightbearing as tolerated with posterior hip precautions, PT/OT Lovenox for DVT prophylaxis Pain control with Tylenol Celebrex oxycodone Incentive spirometry 10 times per hour IV Ancef for positive culture growth of group C/G Streptococcus. Surgical cultures pending, Gram stain negative to date. Plan for PICC line insertion today. Discharge disposition pending. Likely home with home health and IV antibiotics 04/07/17 10:29 Subjective: No acute events. Pain well controlled. Much improved this morning. Has been up and walking with physical therapy. Denies fevers chills nausea vomiting chest pain shortness of breath numbness tingling. Objective: Vital Signs Temp Pulse Resp BP Pulse Ox 36.6 C 83 18 119/77 90 L 04/07/17 04:40 04/07/17 04:40 04/07/17 04:40 04/07/17 04:40 04/07/17 08:30 Microbiology 04/04/17 14:40 Gram Stain - Final Hip - Aspirate 04/06/17 14:07 Gram Stain - Final Hip - Eswab 04/06/17 14:13 Gram Stain - Final Hip - Tissue 04/06/17 14:20 Gram Stain - Final Hip - Eswab 04/05/17 15:10 Gram Stain - Final Synovial Fluid - Aspirate Laboratory Results 04/07/17 04:35 04/07/17 04:35 04/06/17 04/07/17 04/08/17 05:59 05:59 05:59 Intake Total 600 2450 Output Total 300 505 Balance 300 1945 Awake alert and oriented x3 No acute distress Left lower extremity mild serosanguineous drainage posteriorly on the surgical dressing. Compartment soft mild swelling and ecchymosis. Drain with mild serosanguineous output. Sensation intact L3-S1 Motor intact EHL FHL tib ant and gastrocsoleus Palpable DP PT pulses brisk cap refill - Time Spent With Patient Time Spent With Patient: 15 - Pending Discharge Pending Discharge Within 48 Hours: Yes Pending Discharge Date: 04/09/17 Pending Discharge Time: 11:00 ICD10 Worksheet Patient Problems: Problems Problem Status Onset Abscess of left hip Acute History of hip replacement Acute
[2017-04-07] MEDS ORDERED: ALTEPLASE 2 MG VIAL IVP PRN (10:39)
--- NOTE | 2017-04-07 10:44 | PDIAF ---
- Diagnosis Diagnosis: Left hip septic arthritis Code Status: Full Code - Medication Management Discharge Medications: Medications to Continue on Transfer Acetaminophen [Tylenol 325mg (*)] 325 mg PO Q8HRS PRN 04/04/17 [Last Taken 04/03] Acetamn/Diphenhydramine 500/25 [Tylenol PM (*)] 1 each PO HS PRN 04/04/17 [Last Taken 04/03/17] Adalimumab [Humira] 40 mg SQ WE 04/04/17 [Last Taken 03/28/17] oxyCODONE IR [Oxycodone Ir (*)] 5 - 10 mg PO Q8HRS PRN 04/04/17 [Last Taken 1 tab] traMADol [Ultram 50 mg (*)] 50 - 100 mg PO Q6HRS PRN 04/04/17 [Last Taken ] Longterm Antibiotics: Ceftriaxone 2 g IV Q 24 hr Longterm Antibiotic Stop Date: 05/18/17 Discharge Medications: Refer to the Discharge Home Medication list for PRN reason. PICC Care - Routine: Yes - Orders Services needed: Home Mcfp Care Face to Face: I certify that this patient was under my care and that I had the required [id number] encounter meeting the encounter requirements on the discharge day. My findings support the fact that the patient is homebound as defined in Home Care Face to Face Continued: CMS Chapter 7 Medicare Benefits Manual 30.1.1 , The condition of the patient is such that there exists a normal inability to leave home and consequently, leaving home would require a considerable and taxing effort. - Labs/Radiology CBC w/diff Date: 04/11/17 (Weekly Q Sunday) CMP Date: 04/11/17 (Weekly Q Sunday) CRP Date: 04/11/17 (Weekly Q Sunday) Call or Fax Lab and Imaging Results to: Dr. Manzo, - Follow Up Care Current Providers and Referrals: Vamshi Fairchild MD [Primary Care Provider] - As per Instructions
--- NOTE | 2017-04-07 10:47 | PCMIDPN ---
Assessment/Plan: Assessment/Plan: * Left total hip arthroplasty septic arthritis status post incision and drainage with liner exchange: Initial cultures with growth of group C/G Streptococcus. Operative cultures are currently pending. Will transition cefazolin to ceftriaxone for once daily dosing. Ceftriaxone typically with excellent activity against group C/G streptococcus. Plan 6 weeks of IV antibiotic therapy with weekly laboratory monitoring. Risk and benefits of antibiotics and PICC line were discussed with patient today. 04/07/17 10:44 Subjective: Patient complains of left hip pain. Was up ambulating earlier today. Objective: Vital Signs Temp Pulse Resp BP Pulse Ox 36.6 C 83 18 119/77 90 L 04/07/17 04:40 04/07/17 04:40 04/07/17 04:40 04/07/17 04:40 04/07/17 08:30 Microbiology 04/04/17 14:40 Gram Stain - Final Hip - Aspirate 04/06/17 14:07 Gram Stain - Final Hip - Eswab 04/06/17 14:13 Gram Stain - Final Hip - Tissue 04/06/17 14:20 Gram Stain - Final Hip - Eswab 04/05/17 15:10 Gram Stain - Final Synovial Fluid - Aspirate Laboratory Results 04/07/17 04:35 04/07/17 04:35 04/06/17 04/07/17 04/08/17 05:59 05:59 05:59 Intake Total 600 2450 Output Total 300 505 Balance 300 1945 ESR 52 MM/HR (0-20) H 04/04/17 09:20 C-Reactive Protein 156.2 mg/L (<10.0) H 04/04/17 09:31 Cefazolin # 2 Operative Gram stains negative with cultures pending Blood cultures x2 no growth - Physical Exam General Appearance: alert, no apparent distress EENT: pharynx normal, No conjunctival petechiae Respiratory: lungs clear, No respiratory distress Cardiac/Chest: regular rate, rhythm, No systolic murmur Extremities: inflammation (Left hip dressed postoperatively; CAITLIN drain with serosanguineous output) Abdomen: non-tender, No distended ICD10 Worksheet Patient Problems: Problems Problem Status Onset Abscess of left hip Acute History of hip replacement Acute
--- NOTE | 2017-04-07 12:14 | ASMTCMCOM ---
CM Note CM Note Notes: DC plan still to go home with IV ABX's. Spoke w/Dr Banuelos who said pt will need 6 wks IV ABX's. Met w/pt and ; they confirmed they would like to do this at home and are comfortable learning how to administer IV ABX. Pt will get PICC today. We discussed therapy. PT recommending out pt PT, but pt considering whether he would like to have PT initially at home; we discussed that it would be best to check with ortho MD tomorrow to see if they felt Home PT was necessary. At this time RN from [facility] will see pt at home but if pt decieds to have home PT will need to find other agency to send RN/PT. Discussed this with Evelyn from [facility]. Per Evelyn, pt is 100 % covered for this home infusion. Pt lives at home w/, RANDAL. They will initially be staying at friend's house so that they can live on one story. This address, [facility], [place] [address], was given to Evelyn at [facility]. CM will follow and will f/u to see if pt will need home PT or not. Date Signed: 04/07/2017 12:13 PM Electronically Signed By:Brenda Hooks RN
--- NOTE | 2017-04-07 12:45 | HOSPPROG ---
Hospitalist Progress Note Assessment/Plan: DIAGNOSES: -septic left hip prosthesis, status post imaging guided aspiration 60 cc infected synovial fluid, status post Left total hip debridement and irrigation with head/liner exchange. 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 I reviewed in detail with Dr. Banuelos. I agree with switching antibiotic to Rocephin so that he can do once daily antibiotics. We should be able to very soon arrange for home IV antibiotics if the Orthopedics team is comfortable with trying to get him home soon. He should work with the Infectious Disease team and with his button pusher to determine the future care for his psoriasis. There would be increased risk for ongoing infectious complications with further Humira therapy SUBJECTIVE: Some discomfort and hip but actually moving around fairly well, walking in hallway without additional pain. No chills or sweats No respiratory symptoms or chest symptoms OBJECTIVE Vitals reviewed: Afebrile with stable vital signs Exam: alert oriented skin warm dry color ok resps not labored lungs clear BSs heart regular abd soft nondistended nontender, bowel sounds present limbs still some swelling and tenderness at left hip but improved Drain is removing some red blood along with a small amount of serous fluid iv site ok Laboratory data: Metabolic panel stable Objective: Vital Signs Temp Pulse Resp BP Pulse Ox 37.0 C 78 12 119/82 H 91 L 04/07/17 12:33 04/07/17 12:33 04/07/17 12:33 04/07/17 12:33 04/07/17 12:33 Microbiology 04/04/17 14:40 Gram Stain - Final Hip - Aspirate 04/06/17 14:07 Gram Stain - Final Hip - Eswab 04/06/17 14:13 Gram Stain - Final Hip - Tissue 04/06/17 14:20 Gram Stain - Final Hip - Eswab 04/05/17 15:10 Gram Stain - Final Synovial Fluid - Aspirate Laboratory Results 04/07/17 04:35 04/07/17 04:35 04/06/17 04/07/17 04/08/17 06:59 06:59 06:59 Intake Total 600 2450 Output Total 300 505 35 Balance 300 1945 -35 ICD10 Worksheet Patient Problems: Problems Problem Status Onset Abscess of left hip Acute History of hip replacement Acute
[2017-04-07] MEDS: ZOLPIDEM TARTRATE 5 MG TAB PO PRN (20:16)
[2017-04-08] MEDS: traMADol 50 MG TAB PO PRN ×2 (02:53→12:34)
[2017-04-08] MEDS: ACETAMINOPHEN 325 MG TAB PO PRN (02:54)
[2017-04-08 03:12] LABS: HEMATOCRIT 35.6 % (40.0-51.0)
--- NOTE | 2017-04-08 08:46 | SOAPPROG ---
SOAP Progress Note Assessment/Plan: Assessment: The patient interviewed and examined today. Please see my dictated consultation for the details. Plan: 04/05/17 09:14 Objective: Vital Signs Temp Pulse Resp BP Pulse Ox 37.0 C 87 18 121/76 H 95 04/07/17 23:38 04/07/17 23:38 04/07/17 23:38 04/07/17 23:38 04/07/17 23:38 Microbiology 04/06/17 14:20 Gram Stain - Final Hip - Eswab 04/05/17 15:10 Gram Stain - Final Synovial Fluid - Aspirate 04/04/17 14:40 Gram Stain - Final Hip - Aspirate 04/06/17 14:13 Gram Stain - Final Hip - Tissue 04/06/17 14:07 Gram Stain - Final Hip - Eswab Laboratory Results 04/08/17 03:00 04/07/17 04:35 04/07/17 04/08/17 04/09/17 05:59 05:59 05:59 Intake Total 2450 1500 Output Total 505 120 Balance 1945 1380 ICD10 Worksheet Patient Problems: Problems Problem Status Onset Abscess of left hip Acute History of hip replacement Acute
--- NOTE | 2017-04-08 08:48 | SOAPPROG ---
SOAP Progress Note Assessment/Plan: Assessment: The patient interviewed and examined today. Please see my dictated consultation for the details. Plan: 04/05/17 09:14 04/08/17 08:46 Afebrile. Hip pain is decreasing. Has been walking in [place]. C/O constipation. Minor bleeding on dsg. CPR is down. Has PICC line. Aspirate and surgical cultures Group C/G strep. P: DC today. IV antibiotics 6 weeks. Objective: Vital Signs Temp Pulse Resp BP Pulse Ox 37.0 C 87 18 121/76 H 95 04/07/17 23:38 04/07/17 23:38 04/07/17 23:38 04/07/17 23:38 04/07/17 23:38 Microbiology 04/06/17 14:20 Gram Stain - Final Hip - Eswab 04/05/17 15:10 Gram Stain - Final Synovial Fluid - Aspirate 04/04/17 14:40 Gram Stain - Final Hip - Aspirate 04/06/17 14:13 Gram Stain - Final Hip - Tissue 04/06/17 14:07 Gram Stain - Final Hip - Eswab Laboratory Results 04/08/17 03:00 04/07/17 04:35 04/07/17 04/08/17 04/09/17 05:59 05:59 05:59 Intake Total 2450 1500 Output Total 505 120 Balance 1945 1380 ICD10 Worksheet Patient Problems: Problems Problem Status Onset Abscess of left hip Acute History of hip replacement Acute
[2017-04-08 08:53] VITALS: BP 141/105; PULSE 88; RESP 16; TEMP 97.9; O2SAT 94
--- NOTE | 2017-04-08 09:01 | PDIAF ---
- Diagnosis Diagnosis: Left hip septic arthritis Code Status: Full Code - Medication Management Discharge Medications: Medications to Continue on Transfer Acetaminophen [Tylenol 325mg (*)] 325 mg PO Q8HRS PRN 04/04/17 [Last Taken 04/03] Acetamn/Diphenhydramine 500/25 [Tylenol PM (*)] 1 each PO HS PRN 04/04/17 [Last Taken 04/03/17] Adalimumab [Humira] 40 mg SQ WE 04/04/17 [Last Taken 03/28/17] Acetaminophen [Tylenol 325mg (*)] 650 mg PO Q4HRS PRN tab 04/08/17 [Last Taken Unknown] Sennosides/Docusate Sodium [Senokot-S] 1 - 2 tab PO BID tab 04/08/17 [Last Taken Unknown] cefTRIAXone [Rocephin] 2 gm IV DAILY vial 04/08/17 [Last Taken Unknown] celeCOXIB [Celebrex (*)] 200 mg PO BID PRN #30 cap 04/08/17 [Last Taken Unknown] traMADol [Ultram 50 mg (*)] 50 - 100 mg PO Q6HRS PRN #30 tab 04/08/17 [Last Taken Unknown] 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 PICC Care - Routine: Yes - Orders Services needed: Home Care, Registered Nurse Home Care Face to Face: I certify that this patient was under my care and that I had the required [id number] encounter meeting the encounter requirements on the discharge day. My findings support the fact that the patient is homebound as defined in Home Care Face to Face Continued: CMS Chapter 7 Medicare Benefits Manual 30.1.1 , The condition of the patient is such that there exists a normal inability to leave home and consequently, leaving home would require a considerable and taxing effort. Diet Recommendation: no restrictions on diet Diet Texture: Regular Texture Diet Wound Care Instructions: ok to shower. colt villalobos 1 week - Labs/Radiology CBC w/diff Date: 04/11/17 (Weekly Q Sunday) CMP Date: 04/11/17 (Weekly Q Sunday) CRP Date: 04/11/17 (Weekly Q Sunday) Call or Fax Lab and Imaging Results to: Dr. Manzo, - Follow Up Care Current Providers and Referrals: Vamshi Fairchild MD [Primary Care Provider] - As per Instructions Davy Townsend MD [Medical Doctor] - 04/13/17
--- NOTE | 2017-04-08 09:17 | GDS ---
[f rep st] DISCHARGE SUMMARY ADMISSION DIAGNOSIS: Probable left total hip arthroplasty, sepsis. DISCHARGE DIAGNOSIS: Left total hip arthroplasty, sepsis. OPERATIONS PERFORMED: April 06, 2017, debridement and irrigation of left total hip arthroplasty with head/liner exchange. POSTOPERATIVE COMPLICATIONS: None. CONDITION ON DISCHARGE: Improved. DESCRIPTION OF HOSPITAL COURSE: The patient was initially evaluated in the emergency room. He was admitted to the hospital by Dr. Bryant Casanova with a presumptive diagnosis of an infected left total hip arthroplasty. His total hip arthroplasty had been performed in December at the [facility]. He underwent an aspiration of a fluid collection in the posterior aspect of his hip. This ended up growing strep dysgalactiae group C/G. His admission white cell count was 9070 with 70% neutrophils. Admission sed rate was 52 and his admission CRP was 156.2. At surgery the hip and wound were thoroughly debrided and irrigated. I exchanged his femoral head and the polyethylene acetabular liner. Upon admission to the hospital, he was started on vancomycin. Once we had the culture results this was switched to Ancef. On April 07, 2017, he had a PICC line inserted. He was seen by Dr. Ursula Manzo and Dr. Guerrero Banuelos from [place]. He was seen by Physical Therapy and was up and walking in the [place]. By the time of discharge, he was afebrile and independent walking. A followup C- reactive protein was 74.6. His postoperative hemoglobin and hematocrit on April 08, 2017, were 12.[address] Guerrero Banuelos wants to see him in the office on Sunday or Sunday. I will see him back in the office on Thursday April 13, 2017. If there are any problems, he is to call me at the office. He will remain on IV ceftriaxone for 6 weeks. Copy requested to: Milton Jacobson MD [facility] Dr. Guerreor Fairchild /[id number]/MODL MTDD
[2017-04-08] MEDS: FAMOTIDINE 20 MG TAB PO SCH (09:33)
[2017-04-08] MEDS: SENNOSIDES/DOCUSATE SODIUM TAB PO SCH (09:33)
[2017-04-08] MEDS: ENOXAPARIN 40 MG/0.4 ML SYR SC SCH (09:33)
--- NOTE | 2017-04-08 09:48 | ASMTCMCOM ---
CM Note CM Note Notes: Patient medically stable for discharge. Final orders and Picc info faxed to [facility]. Patient provided address where they will be post discharge. Information in allscripts to [facility]. Airline excuse put in discharge. Patient will follow up with outpatient therapies. Plan dc to home with home infusion. CM available should other needs arise. Date Signed: 04/08/2017 09:47 AM Electronically Signed By:Cristel Corbin RN
--- NOTE | 2017-04-08 14:26 | ASDISCHSUM ---
Discharge Information Plan Status:IV ABX/Infusion Medically Cleared to Leave: Discharge Date:04/08/2017 01:28 PM D/C Disposition:Home Health Service ADT D/C Disposition:Home Health Service Projected Discharge Date:04/08/2017 11:00 AM Transportation at D/C:Family Discharge Delay Reason: Follow-Up Date:04/08/2017 11:00 AM Discharge Slot: Final Diagnosis: Placement Information Referral Type:Home Infusion Referral ID:[id number] Provider Name:[facility] [place] [facility] Address 1:[address] Address 2: City:[place] Selection Factors: State:[place] Patient Contact Information Contact Name:MARINA Relationship: Address:[address] City:[place] Alternate Phone: State/Zip Code:[place] [address] Email: Financial Information Financial Class:HMO and PPO Plans Primary Plan Desc:[employer] Primary Plan Number:[id number] Secondary Plan Desc: Secondary Plan Number: Assessment Information LACE LACE Acuity / Level of Care Answers: Was the patient admitted to hospital via the emergency department? Yes: Emergency dept visits in Answers: 1 last 6 months Score: 4 Date Signed: 04/04/2017 01:37 PM Electronically Signed By:Erika Moncada RN [facility] CM Progress Note CM Note CM Note Notes: Pt has L hip abscess (had total hip in December at [facility] in [place]). Ortho and ID consulting, PT/OT eduardo pending. Pt may need debridement and may consider having this done in [place]. CM to follow. Date Signed: 04/05/2017 12:24 PM Electronically Signed By:BILLY Roman [facility] Progress Note CM Note CM Note Notes: Pt went to surgery today for hip abscess, will require home IV antibiotics. Pt currently on cefazolin 2g q8. Referral sent to Evelyn Rojas attempted to meet pt but he was in surgery. Pt still needs picc. Pt may need [facility] PT/OT. CM to follow Date Signed: 04/06/2017 04:48 PM Electronically Signed By:BILLY Roman [facility]ELLEE Progress Note CM Note CM Note Notes: DC plan still to go home with IV ABX's. Spoke w/Dr Banuelos who said pt will need 6 wks IV ABX's. Met w/pt and ; they confirmed they would like to do this at home and are comfortable learning how to administer IV ABX. Pt will get PICC today. We discussed therapy. PT recommending out pt PT, but pt considering whether he would like to have PT initially at home; we discussed that it would be best to check with ortho MD tomorrow to see if they felt Home PT was necessary. At this time RN from [facility] will see pt at home but if pt decieds to have home PT will need to find other agency to send RN/PT. Discussed this with Evelyn from [facility]. Per Evelyn, pt is 100 % covered for this home infusion. Pt lives at home w/, RANDAL. They will initially be staying at friend's house so that they can live on one story. This address, [address], [place] [address], was given to Evelyn at [facility]. CM will follow and will f/u to see if pt will need home PT or not. Date Signed: 04/07/2017 12:13 PM Electronically Signed By:Brenda Hooks RN Case Management Discharge Plan Note Case Management Discharge Discharge Order Complete? Answers: Yes Patient to Obtain Answers: Independently Medications Transportation Arranged Answers: Family/Friends Case Management Transport Answers: Yes Form Complete Faxed Final Orders Answers: Yes Agency/Facility Transfer Answers: Yes Notes: [facility] Report Printed & Faxed to Receiving Agency Family Notified Answers: Yes Discharge Comments Notes: airline excuse Date Signed: 04/08/2017 09:44 AM Electronically Signed By:Cristel Corbin RN [facility] CM Progress Note CM Note CM Note Notes: Patient medically stable for discharge. Final orders and Picc info faxed to [facility]. Patient provided address where they will be post discharge. Information in allscripts to [facility]. Airline excuse put in discharge. Patient will follow up with outpatient therapies. Plan dc to home with home infusion. CM available should other needs arise. Date Signed: 04/08/2017 09:47 AM Electronically Signed By:Cristel Corbin RN Intervention Information
== END 2017-04-08 13:28 | disposition home health service (06) | DRG 468 ==
LOC: F3N 14:57
PROVIDERS: ADMIT Internal Medicine; ATTEND Internal Medicine
PROC: 0SPS0JZ Removal of Synthetic Substitute from Left Hip Joint, Femoral Surface, Open Approach (ICD-10-PCS; principal; 2017-04-06 13:00)
PROC: 0SPB09Z Removal of Liner from Left Hip Joint, Open Approach (ICD-10-PCS; principal; 2017-04-06 13:00)
PROC: 0S9B3ZX Drainage of Left Hip Joint, Percutaneous Approach, Diagnostic (ICD-10-PCS; principal; 2017-04-06 13:00)
PROC: 0SUE09Z Supplement Left Hip Joint, Acetabular Surface with Liner, Open Approach (ICD-10-PCS; principal; 2017-04-06 13:00)
PROC: 0SRS0J9 Replacement of Left Hip Joint, Femoral Surface with Synthetic Substitute, Cemented, Open Approach (ICD-10-PCS; principal; 2017-04-06 13:00)
PROC: 02HV33Z Insertion of Infusion Device into Superior Vena Cava, Percutaneous Approach (ICD-10-PCS; 2017-04-07)
DX: T84.52XA Infection and inflammatory reaction due to internal left hip prosthesis, initial encounter (principal); L40.9 Psoriasis, unspecified; B95.5 Unspecified streptococcus as the cause of diseases classified elsewhere; Z96.642 Presence of left artificial hip joint
CPT/HCPCS: 96365; 97116-GP; 97161-GP; 97164-GP; 97165-GO; 97530-GP; 97535-GO; C1751; J0171; J0690; J0696; J1170; J1650; J1885; J2250; J2704; J2795; J3010; J3370; Q9967

== ENCOUNTER → 2018-06-08 | Outpatient (CLI) | payer OTHER | LOC: BMCIMAGING 10:36 | PROVIDERS: ATTEND Family Medicine | DX: R79.81 Abnormal blood-gas level (principal); I51.7 Cardiomegaly; J40 Bronchitis, not specified as acute or chronic ==